=== PATIENT | female | born 1985 | race Two or more races ===

== ENCOUNTER 2021-09-18 02:00 | Outpatient (CLI) | payer OTHER | END 2021-09-18 02:30 | disposition home or self-care (01) | LOC: PPH VACUNA 02:00 | PROVIDERS: ATTEND Emergency Medicine Pediatric Emergency Medicine | DX: Z23 Encounter for immunization (principal) ==

== ENCOUNTER 2023-04-10 11:08 | Outpatient (CLI) | payer OTHER | END 2023-04-10 11:34 | disposition home or self-care (01) | LOC: SONOGRAMA 11:08 | DX: Z01.811 Encounter for preprocedural respiratory examination (principal); K76.0 Fatty (change of) liver, not elsewhere classified ==

== ENCOUNTER 2023-04-19 12:40 | Outpatient (CLI) | payer OTHER | END 2023-04-19 12:43 | disposition home or self-care (01) | LOC: LAB 12:40 | PROVIDERS: ATTEND Surgery | DX: D46.4 Refractory anemia, unspecified (principal); E11.9 Type 2 diabetes mellitus without complications; E03.9 Hypothyroidism, unspecified; E54 Ascorbic acid deficiency; E55.9 Vitamin D deficiency, unspecified; D51.9 Vitamin B12 deficiency anemia, unspecified; B96.81 Helicobacter pylori [H. pylori] as the cause of diseases classified elsewhere; N39.0 Urinary tract infection, site not specified ==

== ENCOUNTER 2023-05-02 11:32 | Emergency (ER) | payer OTHER ==
[~2023-05-02] VITALS: Ht 167.6 cm; Wt 104.3 kg
[2023-05-02] MEDS ORDERED: LEVOTHYROXINE25 MCG PO (12:08)
[2023-05-02] MEDS ORDERED: GLIPIZIDE XL10 MG PO (12:08)
== END 2023-05-02 18:19 | disposition home or self-care (01) ==
LOC: ER 11:32
PROVIDERS: Emergency Medicine
DX: R11.10 Vomiting, unspecified (principal)

== ENCOUNTER → 2023-06-05 08:47 | Outpatient (CLI) | payer OTHER ==
[~2023-06-05 08:47] MED LIST: GLIPIZIDE XL10 MG PO; LEVOTHYROXINE25 MCG PO
== END | disposition home or self-care (01) ==
LOC: LAB 08:47
PROVIDERS: ATTEND Surgery
DX: D46.4 Refractory anemia, unspecified (principal); E11.9 Type 2 diabetes mellitus without complications; E54 Ascorbic acid deficiency; E55.9 Vitamin D deficiency, unspecified; D51.9 Vitamin B12 deficiency anemia, unspecified; B96.81 Helicobacter pylori [H. pylori] as the cause of diseases classified elsewhere

== ENCOUNTER 2023-07-08 06:19 | Outpatient (CLI) | payer OTHER ==
[2023-07-08 07:16] LABS: PH,URINE 5.5 (5.0-8.0); URINE APPEARANCE Clear; URINE BILIRRUBIN Negative (NEGATIVE); URINE BLOOD Trace; URINE COLOR Dark Yellow; URINE GLUCOSE Negative (NEGATIVE); URINE LEUKOCYTE Moderate; URINE NITRATE Negative; URINE PROTEIN Trace (NEGATIVE)
[2023-07-08 07:17] LABS: URINE BACTERIA 89.4 uL (0.0-1933); URINE RBC 6.4 uL (0.0-20.8); URINE WBC 64.9 uL (0.0-23.2)
== END 2023-07-08 15:00 | disposition home or self-care (01) ==
LOC: LAB 06:19
PROVIDERS: ATTEND Obstetrics & Gynecology Obstetrics
DX: Z87.440 Personal history of urinary (tract) infections (principal)

== ENCOUNTER 2023-07-08 08:17 | Outpatient (CLI) | payer OTHER | END 2023-07-08 08:22 | disposition home or self-care (01) | LOC: SONOGRAMA 08:17 | PROVIDERS: ATTEND Obstetrics & Gynecology Obstetrics | DX: R10.2 Pelvic and perineal pain (principal) ==

== ENCOUNTER 2023-09-09 06:41 | Outpatient (CLI) | payer OTHER ==
[2023-09-09 07:39] LABS: HEMATOCRIT 41.5 % (36.0-45.00); HEMOGLOBIN 14.1 g/dL (12.0-15.00); MEAN CELL VOLUME 89.5 fL (80.00-100.00); MEAN CORPUSCULAR HEMOGLOBIN 30.4 pg (27.00-32.0); PLATELET COUNT 197 K/uL (150-450); RED BLOOD COUNT 4.64 M/uL (4.00-6.00); RED CELL DISTRIBUTION WIDTH 13.3 % (11.5-14.5)
[2023-09-09 08:28] LABS: BILIRUBIN TOTAL 1.09 mg/dL (0.3-1.2); CALCIUM 8.8 mg/dL (8.5-10.1); CHOL HDL RATIO 2.9 (0-5.0); CREATININE SERUM 0.86 mg/dL (0.55-1.02); GFR 74.66; GLOBULINA 3.1 G/DL (2.4-3.5); POTASSIUM 3.62 mEq/L (3.5-5.1); T4 FREE 1.02 NG/ML (0.76-1.46); T4 TOTAL 10.52 UG/DL (4.8-13.9); TOTAL PROTEIN 7.1 gm/dL (6.4-8.2); TSH 4.48 uIU/mL (0.358-3.74)
[2023-09-09 12:50] LABS: FOLIC ACID 8.47 ng/ml (4.78-20); T3 TOTAL 1.02 ng/ml (0.846-2.02); VITAMIN D3 25 HYDROXY 85.77 ng/ml (30-120)
[2023-09-10 22:05] LABS: chla t Negative (Negative); neiss Negative (Negative)
== END 2023-09-09 06:43 | disposition home or self-care (01) ==
LOC: LAB 06:41
PROVIDERS: ATTEND Obstetrics & Gynecology Obstetrics
DX: A63.8 Other specified predominantly sexually transmitted diseases (principal); E11.65 Type 2 diabetes mellitus with hyperglycemia; E03.8 Other specified hypothyroidism; D46.4 Refractory anemia, unspecified; E11.9 Type 2 diabetes mellitus without complications; E03.9 Hypothyroidism, unspecified; E54 Ascorbic acid deficiency; E55.9 Vitamin D deficiency, unspecified; D51.9 Vitamin B12 deficiency anemia, unspecified; Z11.59 Encounter for screening for other viral diseases

== ENCOUNTER 2024-02-25 18:54 | Emergency (ER) | payer OTHER ==
[~2024-02-25] VITALS: Ht 167.6 cm; Wt 70.8 kg
[2024-02-26] MEDS ORDERED: PROMETHAZINE HCL 50 MG/ML AMPUL IM STA (00:23)
[2024-02-26] MEDS ORDERED: FAMOTIDINE/PF 20 MG/2 ML VIAL IV PUSH STA (00:23)
[2024-02-26] MEDS ORDERED: FAMOTIDINE/PF 20 MG/2 ML VIAL ONE (00:26)
[2024-02-26] MEDS ORDERED: PROMETHAZINE HCL 50 MG/ML AMPUL IM ONE (00:27)
[2024-02-26] MEDS ORDERED: 0.9 % SODIUM CHLORIDE 1,000 ML IV ONE (00:30)
[2024-02-26 01:23] LABS: HEMOGLOBIN 13.6 g/dL (12.0-15.00); MEAN CELL VOLUME 92.2 fL (80.00-100.00); MEAN CORPUSCULAR HEMOGLOBIN 31.3 pg (27.00-32.0); PLATELET COUNT 218 K/uL (150-450); RED BLOOD COUNT 4.34 M/uL (4.00-6.00); RED CELL DISTRIBUTION WIDTH 12.9 % (11.5-14.5)
[2024-02-26 01:55] LABS: PH,URINE 7.5 (5.0-8.0); URINE APPEARANCE Clear; URINE BILIRRUBIN Negative (NEGATIVE); URINE BLOOD Large; URINE COLOR Orange; URINE GLUCOSE Negative (NEGATIVE); URINE LEUKOCYTE Trace; URINE NITRATE Negative; URINE PROTEIN 30 (NEGATIVE)
[2024-02-26 02:00] LABS: URINE BACTERIA 279.6 uL (0.0-1933); URINE EPITHELIAL CELLS 8.3 uL (0.0-38.8); URINE RBC 2410.3 uL (0.0-20.8); URINE WBC 15.1 uL (0.0-23.2)
[2024-02-26 02:03] LABS: ALBUMIN 3.5 gm/dL (3.4-5.0); ALKALINE PHOSPHATASE 50 U/L (50-136); ALT/SGPT 49 U/L (12-78); AMYLASE 92 U/L (25-115); ANION GAP 9 (10.0-20.0); AST/SGOT 40 U/L (15-37); BILIRUBIN TOTAL 0.96 mg/dL (0.3-1.2); BLOOD UREA NITROGEN 8 mg/dL (7-18); BUN CREA RATIO 12 (7.0-25.0); CALCIUM 8.7 mg/dL (8.5-10.1); CARBON DIOXIDE 29 mEq/L (21-32); CHLORIDE 111 mmol/L (98-107); CREATININE SERUM 0.69 mg/dL (0.55-1.02); GFR 96.27; GLOBULINA 3.6 G/DL (2.4-3.5); GLUCOSE FASTING 93 mg/dL (65-100); LIPASE 62 U/L (13-75); OSMOLALITY SERUM 287 MOSM/KG (275-295); POTASSIUM 3.69 mEq/L (3.5-5.1); SODIUM 145 mmol/L (136-145); TOTAL PROTEIN 7.1 gm/dL (6.4-8.2)
[2024-02-26 02:06] LABS: HCG QUANTITATIVE < 1 mUI/mL (1-3)
[2024-02-26] MEDS ORDERED: PEPCID40 MG PO (05:01)
[2024-02-26] MEDS ORDERED: ONDANSETRON ODT4 MG PO (05:01)
== END 2024-02-26 05:03 ==
LOC: ER 18:55
PROVIDERS: General Practice
DX: R11.10 Vomiting, unspecified (principal); E11.9 Type 2 diabetes mellitus without complications; Z79.84 Long term (current) use of oral hypoglycemic drugs; Z98.84 Bariatric surgery status

== ENCOUNTER 2024-06-01 09:02 | Outpatient (CLI) | payer OTHER ==
[~2024-06-01 09:02] MED LIST changes: +ONDANSETRON ODT4 MG PO; +PEPCID40 MG PO
[2024-06-01 09:40] LABS: HEMATOCRIT 38.2 % (36.0-45.00); MEAN CELL VOLUME 93.9 fL (80.00-100.00); MEAN CORPUSCULAR HGB CONC 34.1 g/dl (32.0-36.0); PLATELET COUNT 233 K/uL (150-450); RED BLOOD COUNT 4.06 M/uL (4.00-6.00); RED CELL DISTRIBUTION WIDTH 13.2 % (11.5-14.5)
[2024-06-01 10:42] LABS: ALBUMIN 3.6 gm/dL (3.4-5.0); BILIRUBIN TOTAL 1.33 mg/dL (0.3-1.2); CALCIUM 8.6 mg/dL (8.5-10.1); CREATININE SERUM 0.77 mg/dL (0.55-1.02); GFR 84.82; GLOBULINA 3.1 G/DL (2.4-3.5); POTASSIUM 3.88 mEq/L (3.5-5.1); T4 TOTAL 13.39 UG/DL (4.8-13.9); TOTAL PROTEIN 6.7 gm/dL (6.4-8.2); TSH 3.69 uIU/mL (0.358-3.74)
[2024-06-01 12:33] LABS: FOLIC ACID 19.84 ng/ml (4.78-20); T3 TOTAL 1.33 ng/ml (0.846-2.02); VITAMIN D3 25 HYDROXY 39.6 ng/ml (30-120)
== END 2024-06-01 09:05 | disposition home or self-care (01) ==
LOC: LAB 09:02
DX: D46.4 Refractory anemia, unspecified (principal); E11.9 Type 2 diabetes mellitus without complications; E03.9 Hypothyroidism, unspecified; E54 Ascorbic acid deficiency; E55.9 Vitamin D deficiency, unspecified; D51.9 Vitamin B12 deficiency anemia, unspecified; R19.5 Other fecal abnormalities; Z11.59 Encounter for screening for other viral diseases

== ENCOUNTER 2024-09-17 07:43 | Outpatient (CLI) | payer OTHER ==
[2024-09-17 08:40] LABS: PH,URINE 5.5 (5.0-8.0); URINE APPEARANCE Clear; URINE BILIRRUBIN Negative (NEGATIVE); URINE BLOOD Negative; URINE COLOR Yellow; URINE GLUCOSE Negative (NEGATIVE); URINE KETONE Negative (NEGATIVE); URINE LEUKOCYTE Trace; URINE NITRATE Negative; URINE PROTEIN Negative (NEGATIVE); URINE UROBILINOGEN 0.2 E.U./dl
[2024-09-17 08:41] LABS: HEMATOCRIT 40.2 % (36.0-45.00); HEMOGLOBIN 13.8 g/dL (12.0-15.00); MEAN CELL VOLUME 92.7 fL (80.00-100.00); MEAN CORPUSCULAR HEMOGLOBIN 31.8 pg (27.00-32.0); MEAN CORPUSCULAR HGB CONC 34.4 g/dl (32.0-36.0); PLATELET COUNT 206 K/uL (150-450); RED BLOOD COUNT 4.34 M/uL (4.00-6.00); RED CELL DISTRIBUTION WIDTH 13.1 % (11.5-14.5)
[2024-09-17 08:44] LABS: URINE BACTERIA 1154.1 uL (0.0-1933); URINE EPITHELIAL CELLS 24.6 uL (0.0-38.8); URINE RBC 13.6 uL (0.0-20.8); URINE WBC 6.3 uL (0.0-23.2)
[2024-09-17 09:04] LABS: INR 0.98; PARTIAL THROMBOPLASTIN TIME 24.2 SECONDS (22.0-34.0); PROTHROMBIN TIME 10.7 SECONDS (9.0-11.5)
[2024-09-17 10:24] LABS: ALBUMIN 3.6 gm/dL (3.4-5.0); ALKALINE PHOSPHATASE 37 U/L (50-136); ALT/SGPT 15 U/L (12-78); ANION GAP 6 (10.0-20.0); AST/SGOT 17 U/L (15-37); BILIRUBIN TOTAL 0.66 mg/dL (0.3-1.2); BLOOD UREA NITROGEN 15 mg/dL (7-18); BUN CREA RATIO 18 (7.0-25.0); CARBON DIOXIDE 32 mEq/L (21-32); CHLORIDE 108 mmol/L (98-107); CHOLESTEROL 132 mg/dL (0-200); CREATININE SERUM 0.82 mg/dL (0.55-1.02); GFR 78.44; GLOBULINA 3.1 G/DL (2.4-3.5); GLUCOSE FASTING 75 mg/dL (65-100); HCG QUANTITATIVE < 1 mUI/mL (1-3); HDL 66 mg/dl (40-60); LDL 47 mg/dl (0-130); OSMOLALITY SERUM 283 MOSM/KG (275-295); POTASSIUM 3.93 mEq/L (3.5-5.1); SODIUM 142 mmol/L (136-145); T4 FREE 0.93 NG/ML (0.76-1.46); TOTAL PROTEIN 6.7 gm/dL (6.4-8.2); TRIGLYCERIDES 96 mg/dL (0-150); VLDL 19 (0-39)
[2024-09-18 06:04] LABS: hav igm Negative (Negative); hcv Non Reactive (Non Reactive); hep b c Negative (Negative); hep b s ag Negative (Negative)
== END 2024-09-17 07:44 | disposition home or self-care (01) ==
LOC: LAB 07:43
DX: E88.819 Insulin resistance, unspecified (principal); E78.00 Pure hypercholesterolemia, unspecified; D64.89 Other specified anemias; N39.8 Other specified disorders of urinary system; E11.9 Type 2 diabetes mellitus without complications; Z33.1 Pregnant state, incidental; D68.9 Coagulation defect, unspecified; K75.9 Inflammatory liver disease, unspecified; E06.9 Thyroiditis, unspecified; R17 Unspecified jaundice; A53.9 Syphilis, unspecified; B20 Human immunodeficiency virus [HIV] disease; A56.01 Chlamydial cystitis and urethritis; A54.1 Gonococcal infection of lower genitourinary tract with periurethral and accessory gland abscess

== ENCOUNTER 2024-09-17 08:44 | Outpatient (CLI) | payer OTHER | END 2024-09-17 08:46 | disposition home or self-care (01) | LOC: RAD 08:44 | PROVIDERS: ATTEND Pediatrics | DX: J45.909 Unspecified asthma, uncomplicated (principal) ==

== ENCOUNTER 2024-11-03 08:59 | Outpatient (CLI) | payer OTHER | END 2024-11-03 09:03 | disposition home or self-care (01) | LOC: SONOGRAMA 08:59 | DX: R10.2 Pelvic and perineal pain (principal) ==

== ENCOUNTER 2024-12-04 07:39 | Outpatient (CLI) | payer OTHER ==
[2024-12-04 08:53] LABS: HEMATOCRIT 38.1 % (36.0-45.00); HEMOGLOBIN 12.9 g/dL (12.0-15.00); MEAN CELL VOLUME 92.1 fL (80.00-100.00); MEAN CORPUSCULAR HEMOGLOBIN 31.1 pg (27.00-32.0); MEAN CORPUSCULAR HGB CONC 33.8 g/dl (32.0-36.0); PLATELET COUNT 207 K/uL (150-450); RED BLOOD COUNT 4.13 M/uL (4.00-6.00); RED CELL DISTRIBUTION WIDTH 12.2 % (11.5-14.5)
[2024-12-07 09:10] LABS: CA 125 9.4 U/mL (0.0-38.1); FOLLICLE STIMULATING HORMONE 3.1 mIU/mL (.); LEUTEINIZING HORMONE 9.1 mIU/mL (.)
== END 2024-12-04 07:42 | disposition home or self-care (01) ==
LOC: LAB 07:39
PROVIDERS: ATTEND Obstetrics & Gynecology
DX: N92.5 Other specified irregular menstruation (principal); D50.8 Other iron deficiency anemias; R97.8 Other abnormal tumor markers